=== PATIENT | female | born 1985 | race Caucasian/White ===

== ENCOUNTER 2017-10-12 11:00 | Inpatient (IN) | payer MEDICAID ==
[2017-10-12] MEDS: LACTATED RINGER'S 1,000 ML IV ×2 (14:58→22:53)
[2017-10-12] MEDS: AMPICILLIN 2 GM/NS (PMX) 100 ML IV (14:59)
[2017-10-12] MEDS ORDERED: OXYTOCIN 30 UNITS/LR 500 ML IV ×2 (15:00→22:00)
[2017-10-12] MEDS ORDERED: IBUPROFEN 600 MG TAB PO (15:00)
[2017-10-12] MEDS ORDERED: LIDOCAINE 1% (MPF) 30 ML INJ INJ (15:00)
[2017-10-12 15:05] LABS: ADD MAN DIFF? NO
[2017-10-12 15:14] LABS: WHITE BLOOD COUNT 9.4 10^3/ul (4.8-10.8)
[2017-10-12 15:14] LABS: BASOPHILS % 0.2 % (0.0-2.0); EOSINOPHILS # 0.1 10^3/ul (0.0-0.5); EOSINOPHILS % 1.3 % (0.0-7.0); HEMATOCRIT 35.6 % (37.0-47.0); HEMOGLOBIN 12.2 g/dl (12.0-16.0); LYMPHOCYTES # 2.4 10^3/ul (0.8-2.9); LYMPHOCYTES % 25.3 % (15.0-51.0); MEAN CORPUSCULAR HGB CONC 34.3 g/dl (32.0-37.0); MEAN CORPUSCULAR VOLUME 93.4 fl (82.0-101.0); MEAN PLATELET VOLUME 11.9 fl (7.4-10.4); MONOCYTE # 0.9 10^3/ul (0.3-0.9); MONOCYTES % 9.2 % (0.0-11.0); NEUTROPHILS % 63.4 % (39.0-77.0); PLATELET COUNT 208 10^3/UL (140-415); RED BLOOD COUNT 3.81 10^6/ul (4.20-5.40); RED CELL DISTRIBUTION WIDTH 13.2 % (11.5-14.5)
[2017-10-12 15:41] LABS: INR 0.86; PROTIME 11.8 Sec (11.9-14.9); PT RATIO 0.9
[2017-10-12 15:42] LABS: PARTIAL THROMBOPLASTIN TIME 27.5 Sec (25.0-35.0)
[2017-10-12 16:43] LABS: RAPID PLASMA REAGIN NONREACTIVE (NR)
[2017-10-12] MEDS: AMPICILLIN 1 GM/NS (PMX) 50 ML IV ×2 (19:29→22:54)
[2017-10-13] MEDS: LACTATED RINGER'S 1,000 ML IV (03:11)
[2017-10-13] MEDS: AMPICILLIN 1 GM/NS (PMX) 50 ML IV ×2 (03:11→07:09)
[2017-10-13] MEDS: BUTORPHANOL 2 MG INJ IV (05:27)
[2017-10-13] MEDS ORDERED: METHYLERGONOVINE 0.2 MG INJ (10:15)
[2017-10-13] MEDS ORDERED: MISOPROSTOL 200 MCG TAB (10:17)
[2017-10-13] MEDS: MISOPROSTOL 200 MCG TAB PO (10:28)
[2017-10-13] MEDS: METHYLERGONOVINE 0.2 MG INJ IM (10:28)
[2017-10-13] MEDS: OXYTOCIN 30 UNITS/LR 500 ML IV ×2 (10:30→11:41)
[2017-10-13] MEDS ORDERED: DEXTROSE 5%-LR 1,000 ML IV (11:41)
[2017-10-13] MEDS ORDERED: LACTATED RINGER'S 1,000 ML IV* (11:41)
[2017-10-13] MEDS ORDERED: OXYCODONE/ASPIRIN (4.88/325) TAB PO (12:00)
[2017-10-13] MEDS ORDERED: ACETAMINOPHEN 325 MG TAB PO (12:00)
[2017-10-13] MEDS ORDERED: DIPHENHYDRAMINE 50 MG INJ IV (12:00)
[2017-10-13] MEDS ORDERED: CARBOPROST 250 MCG INJ IM (12:00)
[2017-10-13] MEDS ORDERED: OXYTOCIN 30 UNITS/LR 500 ML IV (12:00)
[2017-10-13] MEDS ORDERED: MISOPROSTOL 200 MCG TAB PR (12:00)
[2017-10-13] MEDS ORDERED: SENNA/DOCUSATE NA (8.6MG/50MG) TAB PO (12:00)
[2017-10-13] MEDS ORDERED: ONDANSETRON 4 MG INJ IV (12:00)
[2017-10-13] MEDS ORDERED: DIBUCAINE 1% 30 GM OINT PR (12:00)
[2017-10-13] MEDS ORDERED: METHYLERGONOVINE 0.2 MG INJ IM (12:00)
[2017-10-13] MEDS ORDERED: ZOLPIDEM 5 MG TAB PO (12:00)
[2017-10-13] MEDS: WITCH HAZEL/GLYCERIN PAD PR (12:55)
[2017-10-13] MEDS: IBUPROFEN 600 MG TAB PO ×3 (12:55→23:40)
[2017-10-13] MEDS: LANOLIN 7 GM TUBE TOP (12:56)
[2017-10-13] MEDS: BENZOCAINE 20% 56 ML SPRAY TOP (12:56)
[2017-10-14] MEDS: IBUPROFEN 600 MG TAB PO ×3 (05:42→18:18)
[2017-10-14 07:10] LABS: ADD MAN DIFF? NO
[2017-10-14 07:15] LABS: WHITE BLOOD COUNT 13.9 10^3/ul (4.8-10.8)
[2017-10-14 07:15] LABS: ABNORMAL IP MESSAGE 1; BASOPHILS % 0.3 % (0.0-2.0); EOSINOPHILS # 0.1 10^3/ul (0.0-0.5); EOSINOPHILS % 0.7 % (0.0-7.0); HEMATOCRIT 31.8 % (37.0-47.0); HEMOGLOBIN 10.5 g/dl (12.0-16.0); LYMPHOCYTES # 2.6 10^3/ul (0.8-2.9); LYMPHOCYTES % 18.6 % (15.0-51.0); MEAN CORPUSCULAR HEMOGLOBIN 31.3 pg (29.0-33.0); MEAN CORPUSCULAR VOLUME 94.9 fl (82.0-101.0); MONOCYTE # 1.6 10^3/ul (0.3-0.9); MONOCYTES % 11.3 % (0.0-11.0); NEUTROPHIL # 9.6 10^3/ul (1.6-7.5); NEUTROPHILS % 68.7 % (39.0-77.0); PLATELET COUNT 175 10^3/UL (140-415); RED BLOOD COUNT 3.35 10^6/ul (4.20-5.40); RED CELL DISTRIBUTION WIDTH 12.9 % (11.5-14.5)
[2017-10-14 07:19] LABS: POSITIVE DIFF @See below
[2017-10-15] MEDS: IBUPROFEN 600 MG TAB PO ×4 (00:06→17:46)
[2017-10-15] MEDS ORDERED: MEASLES,MUMPS,RUBELLA VACCINE INJ SC* (09:00)
[2017-10-15 09:10] LABS: ADD MAN DIFF? NO
[2017-10-15 09:15] LABS: WHITE BLOOD COUNT 9.6 10^3/ul (4.8-10.8)
[2017-10-15 09:15] LABS: BASOPHILS % 0.3 % (0.0-2.0); EOSINOPHILS # 0.2 10^3/ul (0.0-0.5); EOSINOPHILS % 2.4 % (0.0-7.0); HEMATOCRIT 31.6 % (37.0-47.0); HEMOGLOBIN 10.4 g/dl (12.0-16.0); LYMPHOCYTES # 2.7 10^3/ul (0.8-2.9); LYMPHOCYTES % 27.9 % (15.0-51.0); MEAN CORPUSCULAR HEMOGLOBIN 31.7 pg (29.0-33.0); MEAN CORPUSCULAR HGB CONC 32.9 g/dl (32.0-37.0); MEAN CORPUSCULAR VOLUME 96.3 fl (82.0-101.0); MEAN PLATELET VOLUME 11.5 fl (7.4-10.4); MONOCYTE # 0.8 10^3/ul (0.3-0.9); NEUTROPHIL # 5.9 10^3/ul (1.6-7.5); NEUTROPHILS % 60.8 % (39.0-77.0); PLATELET COUNT 177 10^3/UL (140-415); RED BLOOD COUNT 3.28 10^6/ul (4.20-5.40); RED CELL DISTRIBUTION WIDTH 13.3 % (11.5-14.5)
[2017-10-15] MEDS: DIPHTH/TET/ACEL PERTUSS (ADULT) 0.5 ML VIAL IM* (18:18)
== END 2017-10-15 18:34 | disposition home or self-care (01) | DRG 775 ==
LOC: OBT 11:00 → PP1 10-13 12:25 → L-D 11:01 → OBT 12:40 → L-D 12:40
PROVIDERS: Obstetrics & Gynecology
PROC: 10E0XZZ Delivery of Products of Conception, External Approach (ICD-10-PCS; principal; 2017-10-13)
PROC: 10907ZC Drainage of Amniotic Fluid, Therapeutic from Products of Conception, Via Natural or Artificial Opening (ICD-10-PCS; 2017-10-13)
DX: O48.0 Post-term pregnancy (principal); O34.219 Maternal care for unspecified type scar from previous cesarean delivery; Z3A.40 40 weeks gestation of pregnancy; Z37.0 Single live birth
CPT/HCPCS: 76815; 76818; 85025; 85610; 85730; 86592; 86900; 86901; 90715